=== PATIENT | female | born 1985 | race Caucasian/White ===

== ENCOUNTER 2020-07-15 11:08 | Emergency (ER) | payer MEDICAID ==
[~2020-07-15] VITALS: Ht 165.1 cm; Wt 81.6 kg
[2020-07-15 11:26] VITALS: BP_SYST 136
[2020-07-15 11:47] LABS: BILIRUBIN,URINE NEGATIVE (NEGATIVE); BLOOD, URINE NEGATIVE (NEGATIVE); GLUCOSE,URINE NEGATIVE (NEGATIVE); KETONES,URINE NEGATIVE (NEGATIVE); LEUKOCYTE ESTERASE ,URINE NEGATIVE (NEGATIVE); NITRITE, URINE NEGATIVE (NEGATIVE); PH,URINE 6.5 (5.0-8.0); PROTEIN URINE NEGATIVE (NEGATIVE); UROBILINOGEN,URINE 0.2 (0.2-1.0)
[2020-07-15] MEDS ORDERED: ONDANSETRON 4 MG ODT TAB PO ONE (12:00)
[2020-07-15] MEDS ORDERED: ONDANSETRON 4 MG ODT TAB ONE (12:05)
[2020-07-15 12:28] LABS: CLARITY/URINE CLEAR (CLEAR); COLOR,URINE YELLOW (YELLOW)
[2020-07-15] MEDS ORDERED: ONDA4TAB5 PO (12:32)
[2020-07-15 12:46] VITALS: BP_SYST 129
== END 2020-07-15 12:46 | disposition home or self-care (01) ==
LOC: SED 11:08
DX: O21.8 Other vomiting complicating pregnancy (principal); Z3A.01 Less than 8 weeks gestation of pregnancy
CPT/HCPCS: 81003; 99283; Q0162